=== PATIENT | male | born 1965 | race Caucasian/White ===

== ENCOUNTER 2017-11-26 00:27 | Emergency (ER) | payer OTHER ==
[2017-11-26] MEDS: KETOROLAC 60 MG INJ IM (00:55)
[2017-11-26] MEDS: RISPERIDONE 1 MG TAB PO (02:29)
[2017-11-26] MEDS: ARIPIPRAZOLE 5 MG TAB PO (02:29)
== END 2017-11-26 03:30 | disposition home or self-care (01) ==
LOC: E/R 00:27
DX: M25.562 Pain in left knee (principal); Z02.89 Encounter for other administrative examinations; Z87.891 Personal history of nicotine dependence
CPT/HCPCS: 73562; 99283-25

== ENCOUNTER 2017-12-16 17:06 | Emergency (ER) | payer OTHER ==
[2017-12-16] MEDS: IBUPROFEN 800 MG TAB PO (20:23)
[2017-12-16] MEDS: LORAZEPAM 1 MG TAB PO (20:23)
[2017-12-16] MEDS: DIPHTH/TET/ACEL PERTUSS (ADULT) 0.5 ML VIAL IM* (20:24)
== END 2017-12-16 20:35 | disposition home or self-care (01) ==
LOC: FTE 17:06
DX: S41.132A Puncture wound without foreign body of left upper arm, initial encounter (principal); F17.210 Nicotine dependence, cigarettes, uncomplicated; W54.0XXA Bitten by dog, initial encounter; Y92.9 Unspecified place or not applicable; Z23 Encounter for immunization
CPT/HCPCS: 73130; 73130-LT; 90471; 90715; 99283-25

== ENCOUNTER 2018-01-13 19:07 | Emergency (ER) | payer OTHER | END 2018-01-14 00:13 | disposition home or self-care (01) | LOC: FTE 01-14 00:13 | DX: L02.31 Cutaneous abscess of buttock (principal); Z87.891 Personal history of nicotine dependence | CPT/HCPCS: 99284; Z7502 ==

== ENCOUNTER 2018-03-22 18:59 | Emergency (ER) | payer OTHER | END 2018-03-22 20:56 | disposition home or self-care (01) | LOC: E/R 18:59 | DX: M25.561 Pain in right knee (principal); Z87.891 Personal history of nicotine dependence | CPT/HCPCS: 73562; 99283-25 ==

== ENCOUNTER 2018-09-12 09:51 | Emergency (ER) | payer OTHER ==
[2018-09-12] MEDS: LIDOCAINE 1% (MPF) 5 ML VIAL INJ (10:23)
[2018-09-12] MEDS: CEFTRIAXONE 1 GM INJ IM (10:23)
== END 2018-09-12 11:10 | disposition home or self-care (01) ==
LOC: FTE 09:51
DX: S61.231A Puncture wound without foreign body of left index finger without damage to nail, initial encounter (principal); S61.233A Puncture wound without foreign body of left middle finger without damage to nail, initial encounter; S61.235A Puncture wound without foreign body of left ring finger without damage to nail, initial encounter; S61.412A Laceration without foreign body of left hand, initial encounter; F17.210 Nicotine dependence, cigarettes, uncomplicated; W54.0XXA Bitten by dog, initial encounter; Y92.9 Unspecified place or not applicable
CPT/HCPCS: 96372; 99284-25